=== PATIENT | female | born 1985 | race Caucasian/White ===

== ENCOUNTER 2016-10-06 10:00 | Emergency (ER) | payer OTHER ==
[2016-10-06 10:44] VITALS: BP 110/70
--- NOTE | 2016-10-06 11:22 | UC ---
Skin Complaint HPI - HPI Summary HPI Summary: has had a viral illness for 2 weeks---seen pcp and emergency department---was getting better than got nauseated, today has developed a full body rash - History of Current Complaint Chief Complaint: UCGeneralIllness Time Seen by Provider: 10/06/16 11:09 Stated Complaint: SKIN COMPLAINT,FEVER Hx Obtained From: Patient Hx Last Menstrual Period: 10/01/16 ?: No Onset/Duration: Sudden Onset, Lasting Days Timing: Constant Onset Severity: Mild Current Severity: Mild Pain Intensity: 0 Pain Scale Used: 0-10 Numeric Location: Diffuse Character: Redness Aggravating: Nothing Alleviating: Nothing Associated Signs & Symptoms: Positive: Nausea, Fever, Rash Related History: Other: - Stopped BActrim 2 days ago - Allergy/Home Medications Allergies/Adverse Reactions: Allergies Allergy/AdvReac Type Severity Reaction Status Date / Time Azithromycin Allergy See Comment Verified 10/06/16 10:34 Amoxicillin [From Augmentin] AdvReac See Comment Verified 10/06/16 10:34 Clavulanic Acid AdvReac See Comment Verified 10/06/16 10:34 [From Augmentin] Review of Systems Constitutional: Fever - at night Skin: Rash - began today Eyes: Negative ENT: Negative Respiratory: Negative Cardiovascular: Negative Gastrointestinal: Vomiting - 2 days ago---was able to eat today Genitourinary: Negative Motor: Negative Neurovascular: Negative Musculoskeletal: Negative Neurological: Negative Psychological: Negative All Other Systems Reviewed And Are Negative: Yes PMH/Surg Hx/FS Hx/Imm Hx Previously Healthy: No Endocrine History Of: Reports: Thyroid Disease Cardiovascular History Of: Reports: 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 Respiratory History Of: Reports: Asthma - Surgical History Surgical History: Yes Surgery Procedure, Year, and Place: HEART SURGERY A TODDLER 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 - Family History Known Family History: Positive: None Family History: no cardio vascular issues reported in family lineage - Social History Occupation: Employed Full-time Lives: With Family Alcohol Use: Rare Substance Use Type: None Smoking Status (MU): Never Smoked Tobacco Physical Exam Triage Information Reviewed: Yes Appearance: Well-Appearing, No Pain Distress, Well-Nourished Vital Signs: Initial Vital Signs Temp 97.6 F 10/06/16 10:34 Pulse 85 10/06/16 10:34 Resp 16 10/06/16 10:34 BP 110/70 05/19/17 10:34 Pulse Ox 98 10/06/16 10:34 Vital Signs Reviewed: Yes Eye Exam: Normal Eyes: Positive: Conjunctiva Clear ENT Exam: Normal ENT: Positive: Normal ENT inspection, Hearing grossly normal, TMs normal. Negative: Nasal congestion, Nasal drainage, Tonsillar swelling, Tonsillar exudate, Trismus, Muffled/hoarse voice Dental Exam: Normal Neck exam: Normal Neck: Positive: Supple, Nontender, No Lymphadenopathy Respiratory Exam: Normal Respiratory: Positive: Chest non-tender, Lungs clear, Normal breath sounds, No respiratory distress Cardiovascular Exam: Normal Cardiovascular: Positive: RRR, No Murmur, Pulses Normal, Brisk Capillary Refill Abdominal Exam: Normal Abdomen Description: Positive: Nontender, No Organomegaly, Soft Bowel Sounds: Positive: Present Musculoskeletal Exam: Normal Musculoskeletal: Positive: Strength Intact, ROM Intact, No Edema Neurological Exam: Normal Neurological: Positive: Alert, Muscle Tone Normal Psychological Exam: Normal Skin Exam: Normal Course/Dx - Course Course Of Treatment: increase fluids, follow with pcp---advance diet slowly - Differential Diagnoses - Skin Complaint Differential Diagnoses: Kelly-Jono Syndrome, Systemic Illness, Viral Exanthem - Diagnoses Provider Diagnoses: Viral exanthem Discharge - Discharge Plan Condition: Stable Disposition: HOME Patient Education Materials: Viral Syndrome (ED), Viral Exanthem (ED) Referrals: Samreen Caro MD [Primary Care Provider] - 3 Days
== END 2016-10-06 11:29 | disposition home or self-care (01) ==
LOC: UCCORT 10:00
DX: B09 Unspecified viral infection characterized by skin and mucous membrane lesions (principal); I77.1 Stricture of artery; E07.9 Disorder of thyroid, unspecified; J45.909 Unspecified asthma, uncomplicated; Z88.1 Allergy status to other antibiotic agents
CPT/HCPCS: 99211; G0463

== ENCOUNTER 2017-04-17 08:53 | Emergency (ER) | payer OTHER ==
--- NOTE | 2017-04-17 09:16 | UC ---
Respiratory Complaint HPI - HPI Summary HPI Summary: 31 year old female presents with complains of cough and chest congestion. - History of Current Complaint Chief Complaint: UCGeneralIllness Stated Complaint: FEVER,COUGH Time Seen by Provider: 04/17/17 09:16 Hx Obtained From: Patient Hx Last Menstrual Period: 10/01/16 Onset/Duration: Sudden Onset Severity Initially: Moderate Severity Currently: Moderate - Allergies/Home Medications Allergies/Adverse Reactions: Allergies Allergy/AdvReac Type Severity Reaction Status Date / Time Azithromycin Allergy See Comment Verified 04/17/17 09:11 Sulfamethoxazole Allergy Rash Verified 04/17/17 09:11 w/Trimethoprim [From Bactrim] Amoxicillin [From Augmentin] AdvReac See Comment Verified 04/17/17 09:11 Clavulanic Acid AdvReac See Comment Verified 04/17/17 09:11 [From Augmentin] Home Medications: Home Medications Albuterol HFA INHALER* [Ventolin HFA Inhaler*] 1 puff Q6HR PRN 04/17/17 [ History Confirmed 04/17/17] PMH/Surg Hx/FS Hx/Imm Hx Previously Healthy: Yes - Surgical History Surgical History: Yes Surgery Procedure, Year, and Place: HEART SURGERY A TODDLER 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 - Family History Known Family History: Positive: None Family History: no cardio vascular issues reported in family lineage - Social History Alcohol Use: Rare Substance Use Type: None Smoking Status (MU): Never Smoked Tobacco Review of Systems Constitutional: Fever Skin: Negative Eyes: Negative ENT: Nasal Discharge, Sinus Congestion, Sinus Pain/Tenderness Respiratory: Cough Cardiovascular: Negative Gastrointestinal: Negative Genitourinary: Negative Motor: Negative Neurovascular: Negative Musculoskeletal: Negative Neurological: Negative Psychological: Negative All Other Systems Reviewed And Are Negative: Yes Physical Exam Triage Information Reviewed: Yes Vital Signs Reviewed: Yes Eye Exam: Normal ENT: Positive: Nasal congestion, Nasal drainage, Sinus tenderness Dental Exam: Normal Neck exam: Normal Neck: Positive: 1 Respiratory: Positive: Rhonchi, Wheezing Cardiovascular Exam: Normal Abdominal Exam: Normal Musculoskeletal Exam: Normal Neurological Exam: Normal Psychological Exam: Normal Skin Exam: Normal Respiratory Course/Dx - Differential Dx/Diagnosis Provider Diagnoses: cough. chest congestion Discharge - Discharge Plan Condition: Stable Disposition: HOME Prescriptions: Albuterol HFA INHALER* [Ventolin HFA Inhaler*] 1 puff INH Q6H PRN #1 mdi PRN Reason: Wheezing DOXYcycline CAP(*) [DOXYcycline 100MG CAP(*)] 100 mg PO BID #14 cap Guaifenesin-Codeine [Cheratussin AC] 1 teasp PO Q8H PRN #120 ml MDD 15 ml PRN Reason: Cough Methylprednisolone [Medrol Dosepak 4 MG*] 4 mg PO .SEE JOSUE INSTRUCTION #21 tab Patient Education Materials: Fever in Adults (ED), Acute Bronchitis (ED) Referrals: Samreen Caro MD [Primary Care Provider] -
[2017-04-17 09:17] VITALS: BP 110/70
== END 2017-04-17 09:46 | disposition home or self-care (01) ==
LOC: UCCORT 08:53
DX: R09.89 Other specified symptoms and signs involving the circulatory and respiratory systems (principal)
CPT/HCPCS: 87651; 99212; G0463

== ENCOUNTER 2017-05-17 21:48 | Emergency (ER) | payer OTHER ==
[2017-05-17 21:58] VITALS: BP 108/66
--- NOTE | 2017-05-17 22:01 | UC ---
Hand/Wrist HPI - HPI Summary HPI Summary: fell yesterday and injured her right index finger-pain swelling and decrease ROM - History Of Current Complaint Chief Complaint: UCUpperExtremity Stated Complaint: FINGER INJ Time Seen by Provider: 05/17/17 21:50 Hx Obtained From: Patient Hx Last Menstrual Period: 10/01/16 ?: No Mechanism Of Injury: fall Onset/Duration: Sudden Onset, Lasting Days - 1 Severity Initially: Mild Severity Currently: Mild Character Of Pain: Aching, Throbbing Aggravating Factor(s): Movement Alleviating Factor(s): Nothing Associated Signs And Symptoms: Positive: Swelling, Bruising Related History: Dominant Hand Right - Allergies/Home Medications Allergies/Adverse Reactions: Allergies Allergy/AdvReac Type Severity Reaction Status Date / Time Azithromycin Allergy See Comment Verified 05/17/17 21:58 Sulfamethoxazole Allergy Rash Verified 05/17/17 21:58 w/Trimethoprim [From Bactrim] Amoxicillin [From Augmentin] AdvReac See Comment Verified 05/17/17 21:58 Clavulanic Acid AdvReac See Comment Verified 05/17/17 21:58 [From Augmentin] PMH/Surg Hx/FS Hx/Imm Hx Previously Healthy: No Endocrine History: Hypothyroidism Respiratory History: Asthma - Surgical History Surgical History: Yes Surgery Procedure, Year, and Place: HEART SURGERY A TODDLER 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 - Family History Known Family History: Positive: None Family History: no cardio vascular issues reported in family lineage - Social History Occupation: Employed Full-time Lives: With Family Alcohol Use: Rare Substance Use Type: None Smoking Status (MU): Never Smoked Tobacco Amount Used/How Often: 1 PPD Cessation Counseling: Counseled 3+Min - 10 Min - Immunization History Most Recent Influenza Vaccination: no Review of Systems Constitutional: Negative Skin: Negative Eyes: Negative ENT: Negative Respiratory: Negative Cardiovascular: Negative Gastrointestinal: Negative Genitourinary: Negative Motor: Negative Neurovascular: Negative Musculoskeletal: Arthralgia - right index finger Neurological: Negative Psychological: Negative Is Patient Immunocompromised?: No All Other Systems Reviewed And Are Negative: Yes Physical Exam Triage Information Reviewed: Yes Appearance: Well-Appearing, No Pain Distress, Well-Nourished Vital Signs Reviewed: Yes Eye Exam: Normal Eyes: Positive: Conjunctiva Clear ENT Exam: Normal ENT: Positive: Normal ENT inspection, Hearing grossly normal. Negative: Nasal congestion, Trismus, Muffled voice, Hoarse voice Dental Exam: Normal Neck exam: Normal Neck: Positive: Supple, Nontender, No Lymphadenopathy Respiratory Exam: Normal Respiratory: Positive: Chest non-tender, Lungs clear, Normal breath sounds, No respiratory distress, No accessory muscle use Cardiovascular Exam: Normal Cardiovascular: Positive: RRR, Pulses Normal, Brisk Capillary Refill Musculoskeletal Exam: Other Musculoskeletal: Positive: Strength Limited @ - right index finger, ROM Limited @, Edema @ Neurological Exam: Normal Neurological: Positive: Alert, Muscle Tone Normal Psychological Exam: Normal Skin Exam: Normal Diagnostics - Radiology No standard instances Xray Interpretation: No Acute Changes Radiology Interpretation Completed By: ED Physician Re-Evaluation - Re-Evaluation First Eval Change: Unchanged - splint applied distal n/m/c intact before and after Hand/Wrist Course/Dx - Course Course Of Treatment: rice, pain med, spolint follow with ortho prn - Differential Dx/Diagnosis Provider Diagnoses: Right index finger sprain Discharge - Discharge Plan Condition: Stable Disposition: HOME Prescriptions: Hydrocodone-Acetaminophen [Hydrocodone/Acetaminophen 5-325 mg] 1 tab PO Q8HR PRN #6 tab MDD 3 PRN Reason: Pain - Moderate To Severe Ibuprofen TAB* [Motrin TAB* 600 MG] 600 mg PO Q6H PRN #30 tab PRN Reason: Pain - Mild To Moderate Patient Education Materials: Finger Sprain (ED), RICE Therapy (ED) Forms: *Work Release Referrals: Gerard Kaplan MD [Medical Doctor] - 4 Days
[2017-05-17] MEDS ORDERED: HYDROcodone/ACETAMIN 5-325 MG* 1 TAB PO ONE (22:25)
--- NOTE | 2017-05-18 07:53 | RAD ---
INDICATION: ] Right second digit injury COMPARISON: None TECHNIQUE: AP, lateral, and oblique views were obtained. FINDINGS: The bony structures, joint spaces, and soft tissues are normal for age. IMPRESSION: NO ACUTE FRACTURE.
== END 2017-05-17 22:35 | disposition home or self-care (01) ==
LOC: UCCORT 21:48
DX: S63.610A Unspecified sprain of right index finger, initial encounter (principal); W19.XXXA Unspecified fall, initial encounter; Y93.9 Activity, unspecified; Y92.9 Unspecified place or not applicable; Y99.9 Unspecified external cause status
CPT/HCPCS: 73140; 99212; G0463

== ENCOUNTER 2017-11-12 12:53 | Emergency (ER) | payer OTHER ==
[2017-11-12 13:19] VITALS: BP 108/70
--- NOTE | 2017-11-12 13:27 | UC ---
Lower Extremity/Ankle HPI - HPI Summary HPI Summary: Pt c/o sudden onset of left toe pain, swelling, erythema. Denies history of gout. Denies recent injury or trauma - History of Current Complaint Hx Obtained From: Patient Hx Last Menstrual Period: 10/29/17 ?: No Onset/Duration: Sudden Onset Severity Initially: Moderate Severity Currently: Moderate Pain Intensity: 8 Aggravating Factor(s): Standing, Ambulation Alleviating Factor(s): Rest Able to Bear Weight: Yes - Risk Factors Gout Risk Factors: Negative DVT Risk Factors: Negative Septic Arthritis Risk Factor: Negative <Trisha Heredia NP - Last Filed: 11/12/17 13:44> <Betito Last - Last Filed: 11/12/17 14:10> - History of Current Complaint Chief Complaint: UCSkin Stated Complaint: RIGHT GREAT TOE PAIN Time Seen by Provider: 11/12/17 13:10 - Allergies/Home Medications Allergies/Adverse Reactions: Allergies Allergy/AdvReac Type Severity Reaction Status Date / Time amoxicillin [From Augmentin] Allergy See Comment Verified 11/12/17 13:12 azithromycin Allergy See Comment Verified 11/12/17 13:12 clavulanic acid Allergy See Comment Verified 11/12/17 13:12 [From Augmentin] sulfamethoxazole Allergy Rash Verified 11/12/17 13:12 [From Bactrim] trimethoprim [From Bactrim] Allergy Rash Verified 11/12/17 13:12 Home Medications: Home Medications Citalopram TAB* [Celexa TAB*] 5 mg PO BEDTIME 11/12/17 [History Confirmed ] PMH/Surg Hx/FS Hx/Imm Hx Previously Healthy: Yes Endocrine History: Thyroid Disease Psychological History: Anxiety - Surgical History Surgical History: Yes Surgery Procedure, Year, and Place: HEART SURGERY A TODDLER 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 - Family History Known Family History: Positive: None Family History: no cardio vascular issues reported in family lineage - Social History Occupation: Employed Full-time Lives: With Family Alcohol Use: Rare Substance Use Type: None Smoking Status (MU): Heavy Every Day Tobacco Smoker Type: Cigarettes Amount Used/How Often: 1/2-1 PPD Have You Smoked in the Last Year: Yes - Immunization History Most Recent Influenza Vaccination: no <Trisha Heredia NP - Last Filed: 11/12/17 13:44> Review of Systems Constitutional: Negative Skin: Other - erythema left great toe Eyes: Negative ENT: Negative Respiratory: Negative Cardiovascular: Negative Gastrointestinal: Negative Genitourinary: Negative Motor: Decreased ROM - left great toe Neurovascular: Negative Musculoskeletal: Arthralgia, Decreased ROM - left great toe, Edema - left great toe, Myalgia Neurological: Negative Psychological: Negative Is Patient Immunocompromised?: No All Other Systems Reviewed And Are Negative: Yes <Trisha Heredia NP Last Filed: 11/12/17 13:44> Physical Exam Triage Information Reviewed: Yes Appearance: Well-Appearing Vital Signs: Initial Vital Signs Temp 97.8 F 11/12/17 13:15 Pulse 71 11/12/17 13:15 Resp 15 11/12/17 13:15 BP 108/70 11/12/17 13:15 Pulse Ox 100 11/12/17 13:15 Vital Signs Reviewed: Yes Eye Exam: Normal ENT Exam: Normal Dental Exam: Normal Neck exam: Normal Respiratory: Positive: No respiratory distress Musculoskeletal Exam: Other Musculoskeletal: Positive: Edema @ - left grat toe Neurological Exam: Normal Psychological Exam: Normal Skin Exam: Other - erythema left anterior great toe <Trisha Heredia NP Last Filed: 11/12/17 13:44> Vital Signs: Initial Vital Signs Temp 97.8 F 11/12/17 13:15 Pulse 71 11/12/17 13:15 Resp 15 11/12/17 13:15 BP 108/70 11/12/17 13:15 Pulse Ox 100 11/12/17 13:15 <Betito Last - Last Filed: 11/12/17 14:10> Lower Extremity Course/Dx - Differential Dx/Diagnosis Differential Diagnosis/HQI/PQRI: Cellulitis, Gout Provider Diagnoses: left great toe gout <Trisha Heredia NP Last Filed: 11/12/17 13:44> Discharge - Sign-Out/Discharge Documenting (check all that apply): Discharge/Admit/Transfer - Billing Disposition and Condition Condition: STABLE Disposition: Home <Trisha Heredia NP Last Filed: 11/12/17 13:44> - Billing Disposition and Condition Condition: STABLE Disposition: Home <Betito Last Last Filed: 11/12/17 14:10> - Discharge Plan Condition: Stable Disposition: HOME Prescriptions: Colchicine* [Colcrys*] 0.6 mg PO DAILY #3 tab Indomethacin CAP* [Indocin CAP*] 50 mg PO Q8H PRN #30 cap PRN Reason: Pain Patient Education Materials: Low Purine Diet (ED), Gout (ED) Referrals: Samreen Caro MD [Primary Care Provider] - If Needed Additional Instructions: Per institutional requirements, I have reviewed the chart, however, I was not consulted specifically or made aware of this patient by the above midlevel provider. I did not personally evaluate, interact with , or disposition this patient.
== END 2017-11-12 13:36 | disposition home or self-care (01) ==
LOC: UCCORT 12:53
DX: M10.9 Gout, unspecified (principal); Z88.3 Allergy status to other anti-infective agents; Z88.0 Allergy status to penicillin; Z88.8 Allergy status to other drugs, medicaments and biological substances; F41.9 Anxiety disorder, unspecified; F17.210 Nicotine dependence, cigarettes, uncomplicated
CPT/HCPCS: 99212; G0463

== ENCOUNTER 2019-07-31 08:45 | Emergency (ER) | payer OTHER ==
[2019-07-31 09:01] VITALS: BP 109/73
[2019-07-31] MEDS ORDERED: Ondansetron ODT TAB* 4 MG PO ONE (09:29)
--- NOTE | 2019-07-31 09:29 | UC ---
FLU HPI - HPI Summary HPI Summary: 33 yo with nausea, headache, one episode of emesis and continued malaise. She is concerned about flu given exposure a week ago to a co-worker. Subjective fever, has not had anti-pyretics. - History of Current Complaint Chief Complaint: UCGeneralIllness Stated Complaint: FLU SYMP Time Seen by Provider: 07/31/19 09:23 Hx Obtained From: Patient Hx Last Menstrual Period: 10/29/17 Onset/Duration: Sudden Onset, Lasting Hours - about 18 Severity Currently: Mild Severity Initially: Mild Pain Intensity: 0 Associated Signs & Symptoms: Positive: Headache, Vomiting Related Hx: Possible Flu/Infectious Exposure - Risk Factors Influenza Risk Factors: Chronic Medical or Immunosuppresive Condition - Allergy/Home Medications Allergies/Adverse Reactions: Allergies Allergy/AdvReac Type Severity Reaction Status Date / Time amoxicillin [From Augmentin] Allergy See Comment Verified 07/31/19 09:01 azithromycin Allergy See Comment Verified 07/31/19 09:01 clavulanic acid Allergy See Comment Verified 07/31/19 09:01 [From Augmentin] sulfamethoxazole Allergy Rash Verified 07/31/19 09:01 [From Bactrim] trimethoprim [From Bactrim] Allergy Rash Verified 07/31/19 09:01 Home Medications: Home Medications Cetirizine* [ZyrTEC 10 MG TAB*] 10 mg PO DAILY 06/15/15 [History Confirmed 07/30] Levothyroxine TAB* [Synthorid 112 MCG TAB*] 112 mcg PO DAILY 06/15/15 [History Confirmed 07/31/19] Montelukast Sodium TAB* [Singulair 10 MG TAB*] 10 mg PO BEDTIME 06/15/15 [ History Confirmed 07/31/19] Albuterol HFA INHALER* [Ventolin HFA Inhaler*] 1 puff INH Q6H PRN #1 mdi [Rx Confirmed 07/31/19] Citalopram TAB* [Celexa TAB*] 5 mg PO BEDTIME 11/12/17 [History Confirmed ] Fluticasone DISKUS 100 MCG(NF) [Flovent Diskus 100 MCG(NF)] 2 puff INH DAILY [History Confirmed 07/31/19] PMH/Surg Hx/FS Hx/Imm Hx Endocrine History: Hypothyroidism Respiratory History: Asthma - and allergies - Surgical History Surgical History: Yes Surgery Procedure, Year, and Place: HEART SURGERY A TODDLER 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 - Family History Known Family History: Positive: Cardiac Disease - father, Other - father of complications of alcoholism Family History: no cardio vascular issues reported in family lineage - Social History Occupation: Employed Full-time Alcohol Use: None Substance Use Type: None Smoking Status (MU): Heavy Every Day Tobacco Smoker Type: Cigarettes Amount Used/How Often: 1/2-1 PPD Length of Time of Smoking/Using Tobacco: 9 yrs Have You Smoked in the Last Year: Yes - Immunization History Most Recent Influenza Vaccination: no Review of Systems All Other Systems Reviewed And Are Negative: Yes Constitutional: Positive: Fatigue Skin: Positive: Negative Eyes: Positive: Negative ENT: Positive: Negative Respiratory: Positive: Negative. Negative: Shortness Of Breath, Cough Cardiovascular: Negative: Chest Pain Gastrointestinal: Positive: Vomiting, Nausea. Negative: Diarrhea Genitourinary: Positive: Negative Motor: Positive: Negative Neurovascular: Positive: Negative Musculoskeletal: Positive: Negative Neurological/Mental Status: Positive: Headache - diffuse, mild Psychological: Positive: Negative Is Patient Immunocompromised?: No Physical Exam Triage Information Reviewed: Yes Appearance: Ill-Appearing - looks mildly unwe.., Obese Vital Signs: Initial Vital Signs Temp 98.6 F 07/31/19 08:56 Pulse 82 07/31/19 08:56 Resp 18 07/31/19 08:56 BP 109/73 07/31/19 08:56 Pulse Ox 100 07/31/19 08:56 Eyes: Positive: Conjunctiva Clear ENT: Positive: Pharynx normal Dental Exam: Normal Neck: Positive: Supple, Nontender, No Lymphadenopathy Respiratory: Positive: Lungs clear, Normal breath sounds Cardiovascular: Positive: RRR, No Murmur Abdomen Description: Positive: Nontender, No Organomegaly, Soft Musculoskeletal Exam: Normal Neurological Exam: Normal Neurological: Positive: Alert, Muscle Tone Normal Psychological Exam: Normal Skin Exam: Normal Diagnostics - Laboratory Lab Results: influenza negative Flu Course/Dx - Course Course Of Treatment: Single dose of onsdansetron given...aware of risk of QT prolongation. with low risk on a single dose. - Differential Dx/Diagnosis Differential Diagnosis/HQI/PQRI: Influenza, Other - gastroenteritis Provider Diagnosis: Viral syndrome Discharge ED - Sign-Out/Discharge Documenting (check all that apply): Patient Departure All imaging exams completed and their final reports reviewed: No Studies - Discharge Plan Condition: Stable Disposition: HOME Patient Education Materials: Viral Syndrome (ED) Forms: *Work Release Referrals: Samreen Caro MD [Primary Care Provider] - Additional Instructions: Rest at home, and increase rest and fluids. Follow up if you have persistent vomiting. Begin oral rehydration at home. - Billing Disposition and Condition Condition: STABLE Disposition: Home
[2019-07-31 09:33] LABS: Influenza A Molecular Negative (Negative); Influenza B Molecular Negative (Negative)
== END 2019-07-31 09:50 | disposition home or self-care (01) ==
LOC: UCCORT 08:45
DX: B34.9 Viral infection, unspecified (principal); R11.2 Nausea with vomiting, unspecified; R51 Headache; R53.81 Other malaise; E66.9 Obesity, unspecified; E03.9 Hypothyroidism, unspecified; J45.909 Unspecified asthma, uncomplicated; F17.210 Nicotine dependence, cigarettes, uncomplicated; Z88.0 Allergy status to penicillin; Z88.1 Allergy status to other antibiotic agents; Z88.2 Allergy status to sulfonamides; Z79.890 Hormone replacement therapy
CPT/HCPCS: 99212; A9270-GY; G0463

== ENCOUNTER 2019-08-30 11:14 | Emergency (ER) | payer OTHER ==
--- NOTE | 2019-08-30 12:07 | UC ---
Back Pain HPI - HPI Summary HPI Summary: Pt presents with c/o sudden onset low back, coccyx pain, that began this morning. Pt denies injury or fall. Pt reports pain is at top of cleft and radiates between buttocks. Denies numbness, tingling, loss of bowel or bladder control. - History of Current Complaint Chief Complaint: UCBackPain Stated Complaint: TAILBONE PAIN Time Seen by Provider: 08/30/19 11:42 Hx Obtained From: Patient Hx Last Menstrual Period: 08/19/19 ?: No Onset/Duration: Sudden Onset - this morning, Still Present Timing: Constant Severity Initially: Moderate Severity Currently: Moderate Pain Intensity: 10 Back Pain: Is Discrete @ - cleftupper buttock, Character: Dull, Aching, Throbbing Aggravating Factor(s): Movement, Walking, Other - sitting Alleviating Factor(s): Rest, Position Associated Signs And Symptoms: Positive: Other - pain with walking. - Risk Factors AAA Risk Factors: Negative TAD Risk Factors: Negative Cauda Equina Risk Factors: Negative Epidural Abscess Risk Factors: Negative - Allergies/Home Medications Allergies/Adverse Reactions: Allergies Allergy/AdvReac Type Severity Reaction Status Date / Time amoxicillin [From Augmentin] Allergy See Comment Verified 08/30/19 11:46 azithromycin Allergy See Comment Verified 08/30/19 11:46 clavulanic acid Allergy See Comment Verified 08/30/19 11:46 [From Augmentin] sulfamethoxazole Allergy Rash Verified 08/30/19 11:46 [From Bactrim] trimethoprim [From Bactrim] Allergy Rash Verified 08/30/19 11:46 Home Medications: Home Medications Cetirizine* [ZyrTEC 10 MG TAB*] 10 mg PO DAILY 06/15/15 [History Confirmed 08/29] Levothyroxine TAB* [Synthorid 112 MCG TAB*] 112 mcg PO DAILY 06/15/15 [History Confirmed 08/30/19] Montelukast Sodium TAB* [Singulair 10 MG TAB*] 10 mg PO BEDTIME 06/15/15 [ History Confirmed 08/30/19] Albuterol HFA INHALER* [Ventolin HFA Inhaler*] 1 puff INH Q6H PRN #1 mdi [Rx Confirmed 08/30/19] Cephalexin CAP* [Keflex 500 CAP*] 500 mg PO Q8H #30 cap 08/30/19 [Rx] Cyclobenzaprine TAB* [Flexeril 10 MG TAB*] 1 tab PO ONCE 08/30/19 [History Confirmed 08/30/19] Ibuprofen TAB* [Advil TAB*] 400 mg PO ONCE 08/30/19 [History Confirmed 08/30/19] PMH/Surg Hx/FS Hx/Imm Hx Previously Healthy: Yes - Surgical History Surgical History: Yes Surgery Procedure, Year, and Place: HEART SURGERY A TODDLER 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 - Family History Known Family History: Positive: Cardiac Disease - father, Other - father of complications of alcoholism, Non-Contributory Family History: no cardio vascular issues reported in family lineage - Social History Occupation: Employed Full-time Lives: With Family Alcohol Use: None Substance Use Type: None Smoking Status (MU): Heavy Every Day Tobacco Smoker Type: Cigarettes Amount Used/How Often: 1/2 ppd Length of Time of Smoking/Using Tobacco: 9 yrs Have You Smoked in the Last Year: Yes - Immunization History Most Recent Influenza Vaccination: no Review of Systems All Other Systems Reviewed And Are Negative: Yes Constitutional: Positive: Negative Skin: Positive: Negative Eyes: Positive: Negative ENT: Positive: Negative Respiratory: Positive: Negative Cardiovascular: Positive: Negative Gastrointestinal: Positive: Negative Genitourinary: Positive: Negative Motor: Positive: Negative Neurovascular: Positive: Negative Musculoskeletal: Positive: Arthralgia - low back coccyx, Myalgia - low back/ coccyx Neurological/Mental Status: Positive: Negative Psychological: Positive: Negative Is Patient Immunocompromised?: No Physical Exam Triage Information Reviewed: Yes Appearance: Pain Distress Vital Signs: Initial Vital Signs Temp 97 F 08/30/19 11:47 Pulse 68 08/30/19 11:47 Resp 17 08/30/19 11:47 Pulse Ox 99 08/30/19 11:47 Vital Signs Reviewed: Yes Eye Exam: Normal ENT Exam: Normal Dental Exam: Normal Neck exam: Normal Respiratory Exam: Normal Respiratory: Positive: No respiratory distress Musculoskeletal: Positive: Other: - non palpable abscess or pilonidal cyst in gluteal fold/martha cleft. No eryrthema or swelling. Neurological Exam: Normal Psychological Exam: Normal Skin Exam: Normal Back Pain Course/Dx - Differential Dx/Diagnosis Differential Diagnosis/HQI/PQRI: Cauda Equina Syndrome, Epidural Abscess, Other - pilonidal cyst Provider Diagnosis: Acute coccygeal pain Discharge ED - Sign-Out/Discharge Documenting (check all that apply): Patient Departure All imaging exams completed and their final reports reviewed: No Studies - Discharge Plan Condition: Stable Disposition: HOME Prescriptions: Cephalexin CAP* [Keflex 500 CAP*] 500 mg PO Q8H #30 cap Patient Education Materials: Pilonidal Cyst (ED), Acute Low Back Pain (ED), Warm Compress or Soak (ED) Referrals: Samreen Caro MD [Primary Care Provider] - If Needed - Billing Disposition and Condition Condition: STABLE Disposition: Home - Attestation Statements Provider Attestation: This patient was not seen by me. I was available for consult. Chart reviewed. LEON
== END 2019-08-30 12:25 | disposition home or self-care (01) ==
LOC: UCCORT 11:14
DX: M53.3 Sacrococcygeal disorders, not elsewhere classified (principal); Z88.1 Allergy status to other antibiotic agents; Z88.0 Allergy status to penicillin; Z88.2 Allergy status to sulfonamides; F17.210 Nicotine dependence, cigarettes, uncomplicated
CPT/HCPCS: 99212; G0463